=== PATIENT | female | born 1960 | race Caucasian/White ===

== ENCOUNTER → 2025-04-16 12:49 | Outpatient (BNVA) | payer MEDICARE, OTHER, SELFPAY | PROVIDERS: Family Provider Family Medicine; PCP Family Medicine; Visit Provider Specialist | DX: R41.3 Other amnesia (principal); F43.10 Post-traumatic stress disorder, unspecified; F98.8 Other specified behavioral and emotional disorders with onset usually occurring in childhood and adolescence; F60.3 Borderline personality disorder | CPT/HCPCS: 99214 ==